=== PATIENT | male | born 1955 | race African-American/Black ===

== ENCOUNTER 2016-10-16 11:27 | Emergency (ER) | payer BC ==
[~2016-10-16] VITALS: Ht 170.2 cm; Wt 79.4 kg
--- NOTE | 2016-10-16 11:59 | PHYS DOC ---
Past Medical History Past Medical History: CAD, Diabetes-Type II, Hypertension Additional Past Medical Histor: stents in heart without mi Past Surgical History: Other Additional Past Surgical Histo: hernia repair x 3; cath with stent Alcohol Use: Rarely Drug Use: None Adult General Chief Complaint Chief Complaint: COUGH [facility] HPI Patient is a 60 year old male who presents with nonproductive cough since Friday night. He states he couldn't sleep last night and when he coughs it hurts his chest slightly . He denies any shortness of breath fevers chills nausea vomiting. He denies any fever. He states he is in the ER since he was coughing so much that he couldn't sleep last night and his job only needed to be evaluated. Review of Systems Review of Systems Constitutional: Denies fever or chills [] Eyes: Denies change in visual acuity, redness, or eye pain [] HENT: Denies nasal congestion or sore throat [] Respiratory: Denies any shortness of breath, positive for cough Cardiovascular: No additional information not addressed in HPI [] GI: Denies abdominal pain, nausea, vomiting, bloody stools or diarrhea [] : Denies dysuria or hematuria [] Musculoskeletal: Denies back pain or joint pain [] Integument: Denies rash or skin lesions [] Neurologic: Denies headache, focal weakness or sensory changes [] Endocrine: Denies polyuria or polydipsia [] Allergies Allergies Allergies Coded Allergies Type Severity Reaction Last Updated Verified No Known Drug Allergies 12/14/15 No Physical Exam Physical Exam Constitutional: Well developed, well nourished, no acute distress, non-toxic appearance. [] HENT: Normocephalic, atraumatic, bilateral external ears normal, oropharynx moist, no oral exudates, nose normal. [] Eyes: PERRLA, EOMI, conjunctiva normal, no discharge. [] Neck: Normal range of motion, no tenderness, supple, no stridor. [] Cardiovascular:Heart rate regular rhythm, no murmur [] Lungs & Thorax: Bilateral breath sounds clear to auscultation [] Abdomen: Bowel sounds normal, soft, no tenderness, no masses, no pulsatile masses. [] Skin: Warm, dry, no erythema, no rash. [] Back: No tenderness, no CVA tenderness. [] Extremities: No tenderness, no cyanosis, no clubbing, ROM intact, no edema. [] Neurologic: Alert and oriented X 3, normal motor function, normal sensory function, no focal deficits noted. [] Psychologic: Affect normal, judgement normal, mood normal. [] Current Patient Data Vital Signs Vital Signs Date Time Temp Pulse Resp B/P Pulse Ox O2 Delivery O2 Flow Rate FiO2 10/16/16 11:30 97.9 75 18 173/83 99 Room Air 97.9 Lab Values Laboratory Tests Test 10/16/16 12:15 White Blood Count 7.6x10^3/uL (4.0-11.0) Red Blood Count 5.59x10^6/uL (4.30-5.70) Hemoglobin 16.7g/dL (13.0-17.5) Hematocrit 51.4% (39.0-53.0) Mean Corpuscular Volume 92fL (79-100) Mean Corpuscular Hemoglobin 30pg (25-35) Mean Corpuscular Hemoglobin Concent 33g/dL (31-37) Red Cell Distribution Width 16.0% (11.5-14.5) H Platelet Count 236x10^3/uL (140-400) Neutrophils (%) (Auto) 72% (31-73) Lymphocytes (%) (Auto) 12% (24-48) L Monocytes (%) (Auto) 14% (0-9) H Eosinophils (%) (Auto) 2% (0-3) Basophils (%) (Auto) 0% (0-3) Neutrophils # (Auto) 5.4x10^3uL (1.8-7.7) Lymphocytes # (Auto) 0.9x10^3/uL (1.0-4.8) L Monocytes # (Auto) 1.1x10^3/uL (0.0-1.1) Eosinophils # (Auto) 0.2x10^3/uL (0.0-0.7) Basophils # (Auto) 0.0x10^3/uL (0.0-0.2) Prothrombin Time 12.0SEC (11.7-14.0) Prothrombin Time INR 0.9 (0.8-1.1) Sodium Level 145mmol/L (136-145) Potassium Level 3.8mmol/L (3.5-5.1) Chloride Level 104mmol/L (98-107) Carbon Dioxide Level 29mmol/L (21-32) Anion Gap 12 (6-14) Blood Urea Nitrogen 23mg/dL (8-26) Creatinine 1.5mg/dL (0.7-1.3) H Estimated GFR (Cockcroft-Gault) 57.6 Glucose Level 85mg/dL (70-99) Calcium Level 8.9mg/dL (8.5-10.1) Magnesium Level 2.1mg/dL (1.8-2.4) Total Bilirubin 0.4mg/dL (0.2-1.0) Direct Bilirubin 0.1mg/dL (0.0-0.2) Aspartate Amino Transferase (AST) 24U/L (15-37) Alanine Aminotransferase (ALT) 34U/L (16-63) Alkaline Phosphatase 120U/L (46-116) H Creatine Kinase 417U/L (39-308) H Creatine Kinase MB (Mass) 2.6ng/mL (0.0-3.6) Creatine Kinase MB Relative Index 0.6% (0-4) Troponin I Quantitative < 0.017ng/mL (0.000-0.055) BH-Qmb-F-Type Natriuretic Peptide 238pg/mL (0-124) H Total Protein 7.3g/dL (6.4-8.2) Albumin 3.5g/dL (3.4-5.0) Lipase 237U/L (73-393) Laboratory Tests 10/16/16 12:15 Laboratory Tests 10/16/16 12:15 EKG EKG EKG shows normal sinus rhythm without any ST elevations, T-wave inversion in leads 1 and aVL, in addition to the 6, left axis deviation, QTC 444 ms, as interpreted by me. Radiology/Procedures Radiology/Procedures [facility] [address] [place], [place] [id number] IMAGING REPORT Signed PATIENT: LUPILLO MARAVILLA ACCOUNT: [id number] : 1955 LOCATION: ER AGE: 60 SEX: M EXAM STATUS: PRE ER ORD. PHYSICIAN: TALIB GREEN MD REASON: chest pain PROCEDURE: CHEST PA & LATERAL CHEST, TWO VIEWS, 10/16/2016: History: Cough No previous chest radiographs are available at this time for comparison purposes. The heart size and pulmonary vascularity are normal. There are calcified mediastinal lymph nodes. No acute infiltrate is seen. There is no evidence of pleural fluid. Mild spurring is present spine. IMPRESSION: No acute cardiopulmonary abnormality is detected. Electronically signed by: Gutierrez Verde MD (Oct 16, 2016 11:59:19) DICTATED and SIGNED BY: GUTIERREZ VERDE MD DATE: 10/16/16 [id number] CC: TALIB GREEN MD; UNKNOWN PCP NAME ~ Impressions: cough Course & Med Decision Making Course & Med Decision Making Pertinent Labs and Imaging studies reviewed. (See chart for details) EKG is not concerning, chest x-ray and labs also not concerning. Complained of these symptoms for 3 days and his labs are normal. Patient be discharged with Z- Seth and Tylenol threes first cough. Return precautions given and is agreeable plan be discharged home in stable condition. Dragon Disclaimer Dragon Disclaimer This electronic medical record was generated, in whole or in part, using a voice recognition dictation system. Departure Departure Impression: Primary Impression: Cough Disposition: 01 HOME, SELF-CARE Condition: GOOD Referrals: UNKNOWN PCP NAME (PCP) Patient Instructions: Cough, Adult, [id number] Additional Instructions: He was seen today for cough. Chest x-ray and labs and x-ray about this. We discharged home with Tylenol 3's they can use as a cough suppressant and a Z- Seth. Please take his medicines as instructed. Please follow-up with primary care physician if her symptoms get worse or do not improve. You can return back to emergency department review of other concerns. Scripts Acetaminophen With Codeine (Tylenol With Codeine #3 Tablet)1 Each Tablet1 Tab PO PRN Q4HRS PRN COUGH #20 TAB Prov:TALIB GREEN MD 10/16/16 Azithromycin (Azithromycin Tablet)250 Mg Tablet1 Pkg PO UD #6 TAB Prov:TALIB GREEN MD 10/16/16 TALIB GREEN MD Oct 16, 2016 11:58
[2016-10-16 12:48] LABS: CALCIUM 8.9 mg/dL (8.5-10.1); CREATININE 1.5 mg/dL (0.7-1.3); GFR 57.6; POTASSIUM 3.8 mmol/L (3.5-5.1)
[2016-10-16 12:57] LABS: ALBUMIN 3.5 g/dL (3.4-5.0); DIRECT BILIRUBIN 0.1 mg/dL (0.0-0.2); MAGNESIUM 2.1 mg/dL (1.8-2.4); TOTAL PROTEIN 7.3 g/dL (6.4-8.2)
[2016-10-16 13:00] LABS: TOTAL BILIRUBIN 0.4 mg/dL (0.2-1.0)
[2016-10-16 13:02] LABS: BASO % 0 % (0-3); EOS % 2 % (0-3); HEMATOCRIT 51.4 % (39.0-53.0); HEMOGLOBIN 16.7 g/dL (13.0-17.5); LYMPH # 0.9 x10^3/uL (1.0-4.8); LYMPH % 12 % (24-48); MEAN CORPUSCULAR HEMOGLOBIN 30 pg (25-35); MEAN CORPUSCULAR HGB CONC 33 g/dL (31-37); MEAN CORPUSCULAR VOLUME 92 fL (79-100); MONO % 14 % (0-9); NEUT % 72 % (31-73); PLATELET COUNT 236 x10^3/uL (140-400); RED BLOOD COUNT 5.59 x10^6/uL (4.30-5.70); WHITE BLOOD COUNT 7.6 x10^3/uL (4.0-11.0)
[2016-10-16 13:14] LABS: CKMB INDEX 0.6 % (0-4); CKMB MASS 2.6 ng/mL (0.0-3.6)
[2016-10-16 13:23] LABS: INR 0.9 (0.8-1.1)
[2016-10-16 13:29] VITALS: BP 153/73
[2016-10-16] MEDS ORDERED: ACET-704 PO (13:34)
[2016-10-16] MEDS ORDERED: AZIT250T6 PO (13:34)
--- NOTE | 2016-10-16 13:54 | EKG ---
[facility] [address] [place] [address] Test Date: 2016-10-16 Test Time: 11:39:35 Pat Name: LUPILLO MARAVILLA Department: Room: Gender: M Sem Manager: : 1955 Requested By: TALIB GREEN Order Number: [id number] Reading MD: Prerna Fraire Measurements Intervals [place] Rate: 78 P: 0 TX: 136 QRS: -30 QRSD: 90 T: 91 QT: 386 QTc: 444 Interpretive Statements SINUS RHYTHM ABNORMAL LEFT AXIS DEVIATION LEFT ANTERIOR FASCICULAR BLOCK QRS(T) CONTOUR ABNORMALITY CONSIDER ANTEROSEPTAL MYOCARDIAL DAMAGE T ABNORMALITY IN LATERAL LEADS RI6.01 Unconfirmed report No previous ECG available for comparison Electronically Signed On 10-19-2016 19:46:06 CDT by Prerna Fraire
== END 2016-10-16 13:48 | disposition home or self-care (01) ==
LOC: ER 11:27
DX: R05 Cough (principal); I25.10 Atherosclerotic heart disease of native coronary artery without angina pectoris; E11.9 Type 2 diabetes mellitus without complications; I10 Essential (primary) hypertension
CPT/HCPCS: 36415; 71020; 80048; 80076; 82553; 83690; 83735; 83880; 84484; 85027; 85610; 93005; 99285-25